=== PATIENT | female | born 1940 | race Caucasian/White ===

== ENCOUNTER 2017-04-23 16:20 | Inpatient (IN) | payer OTHER, MEDICAID ==
[~2017-04-23] VITALS: Ht 152.4 cm; Wt 76.7 kg
[2017-04-23 18:42] LABS: BASOPHIL % 0.6 % (0-2); PLATELET COUNT 241 x10^3mcL (130-400)
[2017-04-23 18:53] LABS: CALCIUM 8.5 mg/dL (8.5-10.1); CARBON DIOXIDE 23.8 mmol/L (21-32); CHLORIDE SERUM 100 mmol/L (98-107); CREATININE SERUM 1.1 mg/dL (0.6-1.0); GLUCOSE SERUM 118 mg/dL (74-106); SODIUM SERUM 134 mmol/L (136-145)
[2017-04-23 19:04] LABS: ALBUMIN 3.2 g/dL (3.4-5.0); ALKALINE PHOSPHATASE 199 U/L (46-116); ALT/SGPT 33 U/L (14-59); AMYLASE 44 U/L (25-115); AST/SGOT 53 U/L (15-37); BILIRUBIN TOTAL 0.45 mg/dL (0.20-1.00); CHOLESTEROL 187 mg/dL (<200); HDL CHOLESTEROL 48 mg/dL (40-60); LIPASE 290 IU/L (73-393); T4(THYROXINE) 19.1 ug/dL (4.7-13.3)
[2017-04-23 19:55] LABS: microscopic required? NO
[2017-04-23] MEDS ORDERED: ASPIRIN ADULT L81 M5 PO (19:56)
[2017-04-23] MEDS ORDERED: AMIODARONE HCL200 MG PO (19:57)
[2017-04-23] MEDS ORDERED: OMEPRAZOLE40 M1 PO (19:57)
[2017-04-23] MEDS ORDERED: LEVOTHYROXIN0.125 M2 PO (19:57)
[2017-04-23] MEDS ORDERED: LASIX40 MG PO (19:57)
[2017-04-23] MEDS ORDERED: ZESTRIL20 MG PO (19:57)
[2017-04-23] MEDS ORDERED: NITROGLYCERIN0.4 MG (19:58)
[2017-04-23] MEDS ORDERED: PROVENTIL0.09 MG/A1 (19:58)
[2017-04-23] MEDS ORDERED: FERROUS SULFAT325 M2 PO (19:58)
[2017-04-23] MEDS ORDERED: TRAMADOL HCL50 MG PO (19:58)
[2017-04-23 20:58] LABS: T3 TOTAL 0.73 ng/mL
[2017-04-23 20:58] LABS: UA SPECIFIC GRAVITY <=1.005 (1.005-1.035); urine erythrocyte NEGATIVE (NEGATIVE)
[2017-04-23 21:05] LABS: PHOSPHOROUS 3.7 mg/dL (2.5-4.9)
[2017-04-23 21:06] LABS: AMPHETAMINE QUAL UR NONE DETECTED (NEG <=1000)
[2017-04-23 21:12] LABS: FREE T4 2.25 ng/dL (0.76-1.46); FREE THYROXINE INDEX 7.6 ug/dL (1.4-4.5)
[2017-04-23 21:31] VITALS: BP 185/68
[2017-04-23 21:34] LABS: IRON 29 ug/dL (50-170); TOTAL IRON BINDING CAPACITY 311 ug/dL (250-450)
[2017-04-23 21:41] LABS: RED BLOOD CELLS 3.73 M/mm3 (4.10-5.10)
[2017-04-24 01:28] VITALS: BP 185/68
[2017-04-24 04:55] VITALS: BP 168/66
[2017-04-24 06:42] LABS: PLATELET COUNT 242 x10^3mcL (130-400); RED CELL DISTRIBUTION WIDTH 13.5 % (11.5-14.5)
[2017-04-24 06:48] LABS: BASOPHIL % 0 % (0-2)
[2017-04-24 06:56] LABS: CALCIUM 8.9 mg/dL (8.5-10.1); CARBON DIOXIDE 21.3 mmol/L (21-32); CHLORIDE SERUM 102 mmol/L (98-107); CREATININE SERUM 0.9 mg/dL (0.6-1.0); GLUCOSE SERUM 204 mg/dL (74-106); MAGNESIUM 2.1 mg/dL (1.8-2.4); PHOSPHOROUS 3.6 mg/dL (2.5-4.9); POTASSIUM SERUM 3.9 mmol/L (3.5-5.1); SODIUM SERUM 131 mmol/L (136-145)
[2017-04-24 10:07] VITALS: BP 147/53
[2017-04-24] MEDS ORDERED: LEVAQUIN750 MG PO (10:39)
[2017-04-24] MEDS ORDERED: BD LACTINEX1.4 MG PO (10:40)
[2017-04-24] MEDS ORDERED: CLINDAMYCIN HC300 MG PO (10:40)
[2017-04-24] MEDS ORDERED: PROVENTIL0.09 MG/A1 INH (10:41)
[2017-04-24 10:55] VITALS: BP 147/53
== END 2017-04-24 14:40 | disposition home or self-care (01) | DRG 178 ==
LOC: ED 16:20 → DU 19:42
PROVIDERS: Emergency Medicine; Family Medicine
DX: J69.0 Pneumonitis due to inhalation of food and vomit (principal); J45.901 Unspecified asthma with (acute) exacerbation; E87.1 Hypo-osmolality and hyponatremia; E44.1 Mild protein-calorie malnutrition; E11.51 Type 2 diabetes mellitus with diabetic peripheral angiopathy without gangrene; I10 Essential (primary) hypertension; I48.2 Chronic atrial fibrillation; D64.9 Anemia, unspecified; E03.9 Hypothyroidism, unspecified; Z96.653 Presence of artificial knee joint, bilateral; Z85.850 Personal history of malignant neoplasm of thyroid; Z85.05 Personal history of malignant neoplasm of liver; Z92.21 Personal history of antineoplastic chemotherapy; Z92.3 Personal history of irradiation; Z79.82 Long term (current) use of aspirin; Z68.33 Body mass index [BMI] 33.0-33.9, adult
CPT/HCPCS: 36600; 82962; 83880; 84439; 87804; J0132; J1956; J2930; J3490; J7030; J7613; J7620; J7633; J7644; Q0092